=== PATIENT | male | born 1990 | race Caucasian/White ===

== ENCOUNTER → 2023-05-30 10:17 | Outpatient (REF) | payer BC, SELFPAY ==
[2023-05-30 11:04] LABS: % Basophils 0.9 % (0-2); % Eosinophils 9.2 % (0-6); % Immature Granulocytes 0.1 % (0-0.5); % Lymphocytes 39.7 % (20.5-51.1); % Monocytes 8.2 % (1.7-9.3); % Neutrophils 41.9 % (42.2-75.2); Absolute Basophils 0.1 10^3/uL (0-0.2); Absolute Eosinophils 0.8 10^3/uL (0-0.7); Absolute Lymphocytes 3.4 10^3/uL (1.2-3.4); Absolute Monocytes 0.7 10^3/uL (0.1-0.6); Absolute Neutrophils 3.6 10^3/uL (1.4-6.5); Hematocrit 41.4 % (39.0-52.0); Hemoglobin 13.8 g/dL (13.0-18.0); Mean Corp Hgb Conc. 33.3 g/dL (33.0-37.0); Mean Corpuscular Hgb 28.9 pg (27.0-31.0); Mean Corpuscular Volume 86.8 fL (80.0-94.0); Mean Platelet Volume 11.7 fL (7.4-10.4); Nucleated Red Blood Cells % 0 % (-); Platelet Count 316 10^3/uL (130-400); Red Blood Cell Count 4.77 10^6/uL (4.70-6.10); Red Cell Dist. Width 13.2 % (11.5-14.5); White Blood Cell Count 8.5 10^3/uL (4.8-10.8)
[2023-05-30 11:33] LABS: Microalbumin, Random Urine 4.7 mg/dl (0.6-1.7); Microalbumin/creatinine Ratio 14.9 mg/g
[2023-05-30 12:00] LABS: Glycohemoglobin (HgbA1c) 9.3 % (4.0-5.6)
[2023-05-30 12:07] LABS: Free T4 1.31 ng/dl (0.78-2.19)
[2023-05-30 12:16] LABS: ALT (SGPT) 25 U/L (0-50); AST (SGOT) 25 U/L (17-59); Albumin 4.1 g/dl (3.5-5.0); Alkaline Phosphatase 76 U/L (38-126); Blood Urea Nitrogen 18 mg/dl (9-20); Calcium 10.2 mg/dl (8.4-10.2); Carbon Dioxide 32 mmol/L (22-30); Chloride 100 mmol/L (98-107); Glucose 196 mg/dl (70-99); HDL Cholesterol 49 mg/dl; LDL Cholesterol, Calculated 123 mg/dl; Sodium 138 mmol/L (135-145); Total Bilirubin 0.7 mg/dl (0.2-1.3); Total Cholesterol 187 mg/dl (50-199); Total Protein 7.4 g/dl (6.3-8.2); Triglyceride 79 mg/dl (10-149); Very Low Density Lipoprotein 15 mg/dl (0-30); eGFR > 60.00
[2023-05-30 12:21] LABS: TSH 1.38 uIU/ml (0.47-4.68)
== END ==
LOC: REG 10:17
PROVIDERS: ATTENDING PHYSICIAN Nurse Practitioner Family; FAMILY PHYSICIAN Student in an Organized Health Care Education/Training Program; REFERRING PHYSICIAN Physician Assistant Medical
DX: M25.572 Pain in left ankle and joints of left foot (principal); Z00.00 Encounter for general adult medical examination without abnormal findings; E10.9 Type 1 diabetes mellitus without complications
CPT/HCPCS: 36415; 80053; 80061; 82043; 82570; 83036; 84439; 84443; 85025

== ENCOUNTER 2023-07-05 21:20 | Emergency (ER) | payer BC, SELFPAY ==
[2023-07-05 21:22] VITALS: BP 167/88
[2023-07-05 21:37] LABS: % Basophils 0.9 % (0-2); % Eosinophils 1.2 % (0-6); % Immature Granulocytes 0.5 % (0-0.5); % Lymphocytes 24.9 % (20.5-51.1); % Monocytes 4.6 % (1.7-9.3); % Neutrophils 67.9 % (42.2-75.2); Absolute Basophils 0.1 10^3/uL (0-0.2); Absolute Eosinophils 0.1 10^3/uL (0-0.7); Absolute Immature Granulocytes 0.1 10^3/uL (0-0.05); Absolute Lymphocytes 2.6 10^3/uL (1.2-3.4); Absolute Monocytes 0.5 10^3/uL (0.1-0.6); Hemoglobin 13.5 g/dL (13.0-18.0); Mean Corp Hgb Conc. 35.5 g/dL (33.0-37.0); Mean Corpuscular Hgb 29.1 pg (27.0-31.0); Mean Corpuscular Volume 81.9 fL (80.0-94.0); Mean Platelet Volume 10.7 fL (7.4-10.4); Nucleated Red Blood Cells % 0 % (-); Platelet Count 327 10^3/uL (130-400); Red Blood Cell Count 4.64 10^6/uL (4.70-6.10); Red Cell Dist. Width 12.9 % (11.5-14.5); White Blood Cell Count 10.2 10^3/uL (4.8-10.8)
[2023-07-05 21:56] LABS: ALT (SGPT) 23 U/L (0-50); AST (SGOT) 32 U/L (17-59); Albumin 4.6 g/dl (3.5-5.0); Alkaline Phosphatase 78 U/L (38-126); Blood Urea Nitrogen 19 mg/dl (9-20); Calcium 9.7 mg/dl (8.4-10.2); Carbon Dioxide 23 mmol/L (22-30); Chloride 101 mmol/L (98-107); Glucose 183 mg/dl (70-99); Potassium 3.7 mmol/L (3.5-5.1); Sodium 137 mmol/L (135-145); Total Bilirubin 0.3 mg/dl (0.2-1.3); eGFR > 60.00
[2023-07-05 22:52] VITALS: BP 156/77
[2023-07-05 23:00] VITALS: BP 160/86
[2023-07-05 23:21] VITALS: BP 150/83
--- NOTE | 2023-07-05 23:47 | ED.GENMED ---
History of Present Illness
General
Chief Complaint: Blood Pressure Problem
Source: patient
Exam Limitations: none
Time Seen by Provider: 07/05/23 22:59
Travel History
Have you had any contact with someone who has COVID-19?: No
Do you have any symptoms of coronavirus? Fever > 100 degrees, chills, cough, shortness of breath, sore throat, loss of taste or smell, muscle aches, or headache?: No
History of Present Illness
History of Present Illness:
32-year-old male who presents for evaluation of blood pressure. Blood pressure was high at home. Patient missed that he was off his lisinopril because he ran out and had not contacted his primary but he started back yesterday. He did take it
today. He is a diabetic and admits that his hemoglobin A1c has been pretty high. He also admits he is 2-3 coffees a day plus an energy drink plus preworkout. The patient denies any symptoms currently. He specifically denies palpitations or chest
pain. No shortness of breath.
Past History
Past History
ED Past Medical History: HTN and IDDM
Phy Exam
Physical Exam
Physical Exam:
CONSTITUTIONAL Patient alert and oriented to person, place and time. Well-appearing. Vital signs reviewed.
HEAD atraumatic, normocephalic.
EYES eyelids normal to inspection, Pupils equally round and reactive to light, Extraocular muscles intact, Conjunctiva normal, Sclera normal.
NECK normal range of motion, Trachea midline, no jugular venous distention.
RESPIRATORY CHEST No respiratory distress noted, Chest expansion equal, Bilateral breath sounds clear.
CARDIOVASCULAR regular rate and rhythm, Heart sounds normal.
ABDOMEN abdomen nontender, Bowel sounds normal. No distention.
BACK normal inspection, no obvious deformities
UPPER EXTREMITY range of motion normal, Motor strength normal, no cyanosis, no edema.
LOWER EXTREMITY range of motion normal, Motor strength normal, no cyanosis, no edema.
NEURO Speech normal, No focal motor deficits, Jean Paul coma scale 15, Memory normal, Cranial Nerves intact to screening exam.
SKIN skin warm, dry, and normal in color.
PSYCHIATRIC patient oriented to person place and time, Normal affect.
Course
Orders/Labs/Results
Orders:
Orders
07/05/23 21:25
Electrocardiogram (*1) Urgent
Reason for Study: Bradycardia / Tachycardia
EKG- Treatment ONCE
07/05/23 21:33
Complete Blood Count/With Diff Urgent
Comprehensive Metabolic Panel Urgent
Abnormal Lab Results
07/05/23
21:33
RBC 4.64 L 10^6/uL
(4.70-6.10)
Hct 38.0 L %
(39.0-52.0)
MPV 10.7 H fL
(7.4-10.4)
Abs Immat Gran (auto) 0.1 H 10^3/uL
(0-0.05)
Absolute Neuts (auto) 7.0 H 10^3/uL
(1.4-6.5)
Glucose 183 H mg/dl
(70-99)
07/05/23 21:33
07/05/23 21:33
Vital Signs
Pulse: 92
Initial and Last Documented VS:
Initial Vital Signs
Temp Pulse Resp BP Pulse Ox
98.0 F 119 18 167/88 99
07/05/23 21:22 07/05/23 21:22 07/05/23 21:22 07/05/23 21:22 07/05/23 21:22
Last Documented Vital Signs
Temp Pulse Resp BP Pulse Ox
98.0 F 119 18 150/83 100
07/05/23 21:22 07/05/23 21:22 07/05/23 21:22 07/05/23 23:21 07/05/23 23:21
MDM/Problems Addressed
MDM/Problems Addressed:
Hyperglycemia, hypertension
*Pulse Oximetry
Patient hypoxic: no
*EKG
Interpreted by ED Provider?: Yes
Rate: tachycardiac
Rhythm: sinus
Buchanan: normal axis
Ischemia: no ischemia
*Consumer Safety Inspector Interpretation
Rate: normal
Interpretation: normal
Heart Rate: 92
Rhythm: sinus
*Critical Care Note
Total Time (30-74mins, 75-104mins- exclusive of procedures): Not Applicable
Data Reviewed
Source: patient and significant other
Prescriptions/Medications Considered But Not Given:
Consider adding amlodipine but patient just restarted lisinopril
Patient Management
Escalation/DeEscalation of care consider admission/obs:
Blood pressure 150/83 on exam. Heart rate 92. Patient is well-appearing. Okay for discharge. Continue lisinopril and monitor blood sugar and blood pressure. Do not feel there is need at this time to add a second agent as we can see if getting
back on lisinopril will improve his BP
ED Attending Note
-
Portions of this chart may have been created with voice recognition software.� Occasional wrong word or��sound alike� substitutions may have occurred due to the inherent limitations of voice recognition software.
Discharge Plan
Departure
Patient Disposition: Home (Routine Discharge)
Date of Disposition: 07/05/23
Time of Disposition: 23:47
Patient with high blood pressure during this ER visit?: Yes
Discharge Problem:
Hypertension
Instructions: High Blood Pressure (DC), BLOOD PRESSURE
Prescriptions:
No Action
lisinopril 10 mg Tablet
10 mg PO DAILY
insulin aspart U-100 [Novolog FlexPen U-100 Insulin] 100 unit/mL (3 mL) Insulin Pen
2 - 5 unit SC MEALS
insulin glargine [Semglee Pen U-100 Insulin] 100 unit/mL (3 mL) Insulin Pen
45 unit SC HS
Referrals:
Mkai Brown PA-C [Family Provider] -
Activity Restrictions/Additional Instructions:
Please see your doctor in follow-up next 3 to 5 days. Please keep a log of your blood pressure and stick to your lisinopril daily. Return immediately for chest pain, shortness of breath, vision changes, weakness of any kind or any other concerns.
Interventions
Interventions:
*Risk Screen - Suicide Last Done: 07/05/23 21:22
*General Assessment Last Done: 07/05/23 21:22
*Neglect/Abuse Screening Last Done: 07/05/23 21:22
ED- Fall Risk Assessment Last Done: 07/05/23 22:58
*ED COVID-19 Vaccine History Last Done: 07/05/23 21:22
ED- Cardiac Assessment Last Done: 07/05/23 22:58
ED- Neurological Assessment Last Done: 07/05/23 22:58
ED- Pulmonary Assessment Last Done: 07/05/23 22:59
== END 2023-07-06 00:05 | disposition home or self-care (01) ==
LOC: EMR 21:20
PROVIDERS: Student in an Organized Health Care Education/Training Program; EMERGENCY PHYSICIAN Emergency Medicine; FAMILY PHYSICIAN Physician Assistant Medical
DX: I10 Essential (primary) hypertension (principal); E11.9 Type 2 diabetes mellitus without complications
CPT/HCPCS: 99283; 80053; 85025; 93005

== ENCOUNTER → 2023-12-14 11:34 | Outpatient (REF) | payer BC, SELFPAY ==
[2023-12-14 12:58] LABS: % Basophils 0.8 % (0-2); % Immature Granulocytes 0.1 % (0-0.5); % Lymphocytes 43.7 % (20.5-51.1); % Monocytes 9.1 % (1.7-9.3); % Neutrophils 34.3 % (42.2-75.2); Absolute Basophils 0.1 10^3/uL (0-0.2); Absolute Eosinophils 0.9 10^3/uL (0-0.7); Absolute Lymphocytes 3.1 10^3/uL (1.2-3.4); Absolute Monocytes 0.7 10^3/uL (0.1-0.6); Absolute Neutrophils 2.5 10^3/uL (1.4-6.5); Hematocrit 39.9 % (39.0-52.0); Hemoglobin 13.5 g/dL (13.0-18.0); Mean Corp Hgb Conc. 33.8 g/dL (33.0-37.0); Mean Corpuscular Hgb 29.1 pg (27.0-31.0); Mean Platelet Volume 11.4 fL (7.4-10.4); Nucleated Red Blood Cells % 0 % (-); Platelet Count 320 10^3/uL (130-400); Red Blood Cell Count 4.64 10^6/uL (4.70-6.10); Red Cell Dist. Width 13.2 % (11.5-14.5); White Blood Cell Count 7.2 10^3/uL (4.8-10.8)
[2023-12-14 13:34] LABS: ALT (SGPT) 31 U/L (0-50); AST (SGOT) 43 U/L (17-59); Albumin 4.4 g/dl (3.5-5.0); Alkaline Phosphatase 71 U/L (38-126); Blood Urea Nitrogen 31 mg/dl (9-20); Carbon Dioxide 26 mmol/L (22-30); Chloride 102 mmol/L (98-107); Glucose 150 mg/dl (70-99); Potassium 4.8 mmol/L (3.5-5.1); Sodium 137 mmol/L (135-145); Total Bilirubin 0.4 mg/dl (0.2-1.3); Total Protein 7.5 g/dl (6.3-8.2); eGFR > 60.00
[2023-12-14 14:30] LABS: Glycohemoglobin (HgbA1c) 7.5 % (4.0-5.6)
== END ==
LOC: REG 11:34
PROVIDERS: ATTENDING PHYSICIAN Physician Assistant Medical
DX: E10.9 Type 1 diabetes mellitus without complications (principal); I10 Essential (primary) hypertension
CPT/HCPCS: 36415; 80053; 83036; 85025

== ENCOUNTER → 2025-01-02 10:32 | Outpatient (REF) | payer BC, SELFPAY ==
[2025-01-02 12:01] LABS: ALT (SGPT) 31 U/L (0-50); AST (SGOT) 39 U/L (17-59); Albumin 4.4 g/dl (3.5-5.0); Alkaline Phosphatase 60 U/L (38-126); Blood Urea Nitrogen 24 mg/dl (9-20); Calcium 9.9 mg/dl (8.4-10.2); Carbon Dioxide 29 mmol/L (22-30); Chloride 104 mmol/L (98-107); Glucose 174 mg/dl (70-99); HDL Cholesterol 49 mg/dl; LDL Cholesterol, Calculated 112 mg/dl; Potassium 4.8 mmol/L (3.5-5.1); Sodium 137 mmol/L (135-145); Total Protein 7.7 g/dl (6.3-8.2); Very Low Density Lipoprotein 10 mg/dl (0-30); eGFR > 60.00
[2025-01-02 12:07] LABS: Glycohemoglobin (HgbA1c) 7.1 % (4.0-5.6)
[2025-01-02 12:31] LABS: TSH 2.00 uIU/ml (0.47-4.68)
[2025-01-02 12:39] LABS: Microalb - Urine Creatinine 125.600 mg/dl
[2025-01-02 12:43] LABS: Microalbumin, Random Urine 1.0 mg/dl (0.6-1.7)
== END ==
LOC: REG 10:32
PROVIDERS: ATTENDING PHYSICIAN Internal Medicine Endocrinology, Diabetes & Metabolism; FAMILY PHYSICIAN Physician Assistant Medical
DX: E10.65 Type 1 diabetes mellitus with hyperglycemia (principal)
CPT/HCPCS: 36415; 80053; 80061; 82043; 82570; 83036; 84443